=== PATIENT | male | born 1950 | race Caucasian/White ===

== ENCOUNTER 2023-12-02 07:31 | Outpatient (REF) | payer MEDICARE, SELFPAY ==
--- NOTE | ~2023-12-02 | XR_ITS ---
EXAMINATION: XR KNEE, RIGHT CLINICAL INFORMATION: Pain in right knee. COMPARISON: None available. TECHNIQUE: Three views of the right knee. FINDINGS: Trace joint effusion. Bones are diffusely demineralized. Moderate narrowing of the tricompartments. Tiny tricompartmental osteophytes. XR/XR knee RT 3V IMPRESSION: Moderate degenerative changes.
== END 2023-12-02 07:32 | disposition home or self-care (01) ==
LOC: HO.HOSX 07:31
PROVIDERS: Visit Provider Orthopaedic Surgery
DX: M25.561 Pain in right knee (principal)
CPT/HCPCS: 73562; 99202

== ENCOUNTER 2023-12-02 13:30 | Outpatient (AMB) | payer MEDICARE, SELFPAY ==
--- NOTE | 2023-12-02 13:50 | A.OFFVIS_ITS ---
Vital Signs 12/02/23 13:55 Height 5 ft 2 in Weight 132 lb BMI 24.1 Intake Visit Reasons: New Patient - Right Knee Pain Intake Note: Lou is a 73 year old female who presents as a new patient to reestablish care with Dr. Peñaloza for Right knee pain. Patient reports her pain has been going on for since November 14 after falling, missing a step and is a 2 on the 1-10 pain sca le. She is using aleve , brace and ibuprofen for pain with some help. She did undergo right knee arthroscopic surgery several years ago. She denies any locking or giving way. Allergies amoxicillin [From Augmentin] Allergy (Intermediate, Verified 12/02/23 13:59) Hives clavulanic acid [From Augmentin] Allergy (Intermediate, Verified 12/02/23 13:59) Hives iodine Allergy (Mild, Verified 12/02/23 13:59) Hives prochlorperazine [From Compazine] Allergy (Mild, Verified 12/02/23 13:59) Hives ivp dye Allergy (Mild, Uncoded 12/02/23 13:59) hive Medication List - Last Reconciled 12/03/23 by Cruzito Peñaloza MD amlodipine-valsartan 5-160 mg 1 tab PO DAILY PFSH Surgical History (Updated 12/02/23 @ 14:01 by Kailee Whitman CMA) Hx of shoulder surgery Hx of right knee surgery Social History (Updated 12/02/23 @ 14:02 by Kailee Whitman CMA) Patient Tobacco Use Status: Never used Tobacco Current occupational status: retired Physical Exam Vital Signs: BMI result Body Mass Index 24.1 Const Other: Well-nourished well-developed very friendly female awake alert and oriented x3 in no acute distress Extrem Other: Bilateral lower extremity examination shows good capillary refill, no skin lesions noted, normal sensation light touch Right knee examination shows a minimal effusion, mild crepitus with range of motion, tenderness along her medial joint line, positive Flo's test, no instability Results Reviewed Results Reviewed: X-rays of the patient's right knee show mild diffuse joint space narrowing, no acute bony abnormalities Assessment & Plan Assessment & Plan (1) Right knee pain: Code(s): M25.561 - Pain in right knee Category: Medical Plan Ms. Shearer presents with right knee discomfort due to early degenerative joint disease and possible recurrent meniscus tearing. I had a lengthy discussion with the patient regarding the treatment options. At this point the patient's symptoms are tolerable to her. She will continue with her activity modifications. She will follow up with me on an as-needed basis should her symptoms worsen in any way. Feel free to call me at any time should questions regarding her orthopedic management arise. I spent 22 minutes in reviewing the patient's records and imaging studies, seeing the patient and documenting in the medical record. Orders: Orders XR knee RT 3V 12/02/23 M25.561 - Pain in right knee Coding Level of Care Code New Pt Level 2 (67848) Diagnoses Right knee pain M25.561
[2023-12-02 13:55] VITALS: BMI 24.1
== END 2023-12-02 14:25 | disposition home or self-care (01) ==
PROVIDERS: PCP Internal Medicine; Visit Provider Orthopaedic Surgery
DX: M25.561 Pain in right knee (principal)
CPT/HCPCS: 99202